=== PATIENT | female | born 1980 | race Caucasian/White ===

== ENCOUNTER 2024-08-31 11:24 | Emergency (ER) | payer BC ==
[~2024-08-31] VITALS: Ht 154.9 cm; Wt 68.3 kg
[2024-08-31 11:30] VITALS: BP 126/76; PULSE 86; RESP 16; TEMP 98.5; O2SAT 98
[2024-08-31 11:58] LABS: STREP A SCREEN NEGATIVE (Neg)
== END 2024-08-31 14:43 | disposition home or self-care (01) ==
LOC: ER 11:25
DX: J06.9 Acute upper respiratory infection, unspecified (principal); Z88.0 Allergy status to penicillin; Z88.1 Allergy status to other antibiotic agents
CPT/HCPCS: 87081; 87880; 99283